=== PATIENT | female | born 1980 | race Caucasian/White ===

== ENCOUNTER 2018-12-29 13:53 | Outpatient (CLI) | payer OTHER ==
--- NOTE | 2018-12-29 17:09 | RAD ---
LEFT WRIST THREE VIEWS: 12/29/18 No fracture or joint abnormality was seen. The first MCP joint appears normal. The carpal bones appea r normal. IMPRESSION: No significant findings. POS: HOME
== END 2018-12-29 13:54 | disposition home or self-care (01) ==
LOC: BURRAD 13:53
PROVIDERS: ATTEND Nurse Practitioner Family
DX: M25.532 Pain in left wrist (principal)